=== PATIENT | male | born 1945 | race Caucasian/White ===

== ENCOUNTER 2018-02-02 00:09 | Emergency (ER) | payer MEDICARE, OTHER ==
[~2018-02-02] VITALS: Ht 185.4 cm; Wt 80.0 kg
[2018-02-02 00:13] VITALS: BP 107/101
[2018-02-02] MEDS ORDERED: METHOCARBAMOL 750 MG TABLET ONE (00:43)
[2018-02-02] MEDS ORDERED: PANTOPRAZOLE 20MG TABLET ONE (00:43)
[2018-02-02] MEDS ORDERED: NAPROXEN 500 MG TABLET ONE (00:43)
[2018-02-02] MEDS ORDERED: NAPROXEN 500 MG TABLET PO ONE (01:00)
[2018-02-02] MEDS ORDERED: METHOCARBAMOL 750 MG TABLET PO ONE (01:00)
[2018-02-02] MEDS ORDERED: PANTOPRAZOLE 20MG TABLET PO ONE (01:00)
== END 2018-02-02 01:08 | disposition home or self-care (01) ==
LOC: ED 00:44
DX: M54.12 Radiculopathy, cervical region (principal)
CPT/HCPCS: 93005; 99284